=== PATIENT | male | born 1975 | race Hispanic/Latino ===

== ENCOUNTER 2018-12-31 05:22 | Emergency (ER) | payer SELFPAY ==
[2018-12-31] MEDS ORDERED: Sodium Chloride 0.9% 1,000 ML IV ONE (06:03)
--- NOTE | 2018-12-31 06:20 | C.PDOC ---
History Of Present Illness 43 year old male presents to ED with complaint of left flank pain for the past 2 days. Patient was diagnosed on 12/29 with left- sided kidney stones and this morning woke up with vomiting, recurrent pain, and hematuria. Patient denies fever, diarrhea, nausea, and chills. Time Seen by Provider: 12/31/18 06:02 Chief Complaint (Nursing): Back Pain History Per: Patient History/Exam Limitations: no limitations Onset/Duration Of Symptoms: Days (2) Current Symptoms Are (Timing): Still Present Quality Of Discomfort: "Pain" Previous Symptoms: None Associated Symptoms: denies: Incontinence, New Weakness, New Numbness Past Medical History Reviewed: Historical Data, Nursing Documentation, Vital Signs Vital Signs: Last Vital Signs Temp 98.3 F 12/31/18 05:30 Pulse 77 12/31/18 05:30 Resp 16 12/31/18 05:30 BP 139/92 H 12/31/18 05:30 Pulse Ox 100 12/31/18 05:30 Primary Care Provider: Non [facility] Provider, - Medical History PMH: Pulmonary Embolism (bilateral) Surgical History: No Surg Hx Family History: States: Unknown Family Hx - Social History Hx Alcohol Use: Yes Hx Substance Use: No Review Of Systems Constitutional: Negative for: Fever, Chills, Weakness Gastrointestinal: Positive for: Vomiting. Negative for: Nausea, Abdominal Pain, Diarrhea Genitourinary: Positive for: Hematuria. Negative for: Dysuria, Frequency Musculoskeletal: Positive for: Back Pain (left-sided flank pain) Neurological: Negative for: Weakness, Numbness Physical Exam - Physical Exam Appears: Well, Non-toxic, No Acute Distress Skin: Normal Color, Warm, Dry Head: Atraumatic, Normacephalic Oral Mucosa: Moist Neck: Normal ROM, Supple Chest: Symmetrical, No Deformity Cardiovascular: Rhythm Regular, No Murmur Respiratory: No Accessory Muscle Use, No Rales, No Rhonchi, No Wheezing Gastrointestinal/Abdominal: Soft, No Tenderness, Other (obese) Back: CVA Tenderness (left-sided) Extremity: Capillary Refill (<2 seconds) Extremity: Bilateral: Atraumatic, Normal Color And Temperature, Normal ROM Pulses: Left Radial: Normal, Right Radial: Normal Neurological/Psych: Oriented x3, Normal Speech, Normal Cognition Gait: Steady ED Course And Treatment O2 Sat by Pulse Oximetry: 100 (in RA) Pulse Ox Interpretation: Normal Progress Note: CMP, CBC, and UA ordered for patient. IV fluids, pain meds and zofran ordered. Disposition - Disposition Disposition Time: 06:56 Condition: STABLE Forms: [facility] (Burmese) - Clinical Impression Clinical Impression: Left flank pain, Hematuria - PA / [employer] / Resident Statement MD/DO has reviewed & agrees with the documentation as recorded. (Niru Torres) - Scribe Statement The provider has reviewed the documentation as recorded by the Scribe (Niru Torres) All medical record entries made by the Scribe were at my direction and personally dictated by me. I have reviewed the chart and agree that the record accurately reflects my personal performance of the history, physical exam, medical decision making, and the department course for this patient. I have also personally directed, reviewed, and agree with the discharge instructions and disposition. Physician Patient Turnover Patient Signed Over To: Ileana Joyce Handoff Comments: Pending labs, Non contrast abd/pelvis CT and reassessment
--- NOTE | 2018-12-31 06:21 | C.PDOC ---
Time Seen by Provider: 12/31/18 06:02 Chief Complaint (Nursing): Back Pain Past Medical History Vital Signs: Last Vital Signs Temp 98.3 F 12/31/18 05:30 Pulse 77 12/31/18 05:30 Resp 16 12/31/18 05:30 BP 139/92 H 12/31/18 05:30 Pulse Ox 100 12/31/18 05:30 Primary Care Provider: Non [facility] Provider, - Medical History PMH: Pulmonary Embolism (bilateral) - Social History Hx Alcohol Use: Yes Hx Substance Use: No ED Course And Treatment O2 Sat by Pulse Oximetry: 100 Disposition - Disposition
[2018-12-31] MEDS ORDERED: Morphine 4 MG/ML VIAL ONE ×2 (06:44→14:13)
[2018-12-31 07:12] LABS: URINE BILIRUBIN NEGATIVE (NEGATIVE); URINE CLARITY Turbid (Clear); URINE GLUCOSE (UA) NORMAL (Normal); URINE LEUKOCYTE ESTERASE NEG Leu/uL (Negative); URINE PROTEIN 2+ mg/dL (NEGATIVE); URINE UROBILINOGEN NORMAL mg/dL (0.2-1.0)
[2018-12-31 07:16] LABS: URINE BLOOD 3+ (NEGATIVE); URINE COLOR RED (YELLOW)
[2018-12-31 07:17] LABS: BLOOD UREA NITROGEN 11 mg/dL (9-20); CALCIUM 9.3 mg/dl (8.6-10.4); GFR NON-AFRICAN AMERICAN > 60
[2018-12-31 07:18] LABS: ALB/GLOB RATIO 1.2 (1.0-2.1); ALBUMIN 4.4 g/dL (3.5-5.0); ALT/SGPT 39 U/L (21-72); AST/SGOT 60 U/L (17-59)
[2018-12-31] MEDS ORDERED: Sodium Chloride 0.9% 1,000 ML IV STA (07:29)
[2018-12-31] MEDS ORDERED: Lidocaine 200 MG in Sodium Chloride 0.9% 100 ML IV STA (07:29)
--- NOTE | 2018-12-31 12:37 | CT ---
Date of service: 12/31/2018 PROCEDURE: CT Abdomen and Pelvis without intravenous contrast HISTORY: Left flank pain COMPARISON: None. TECHNIQUE: Axial and reformatted coronal and sagittal CT images of the abdomen and pelvis were obtained without IV or oral contrast administration. Contrast dose: 0 Radiation dose: Total exam DLP = 1234.95 mGy-cm. This CT exam was performed using one or more of the following dose reduction techniques: Automated exposure control, adjustment of the mA and/or kV according to patient size, and/or use of iterative reconstruction technique. FINDINGS: LOWER THORAX: Unremarkable. LIVER: Unremarkable. No gross lesion or ductal dilatation. GALLBLADDER AND BILE DUCTS: Unremarkable. PANCREAS: Unremarkable. No gross lesion or ductal dilatation. SPLEEN: Unremarkable. ADRENALS: Unremarkable. No mass. KIDNEYS AND URETERS: There is mild left hydronephrosis and hydroureter up to 3 millimeter calculus at the distal left ureter adjacent to the UV junction. There Is 2 millimeter nonobstructing calculus at the lower pole of the right kidney. Punctate calcification are noted in both kidneys. No evidence of right hydronephrosis. VASCULATURE: Unremarkable. No aortic aneurysm. No aortic atherosclerotic calcification or mural plaque present. BOWEL: Unremarkable. No obstruction. No gross mural thickening. Few scattered colonic diverticulosis are noted without evidence of diverticulitis. APPENDIX: No evidence of appendicitis. PERITONEUM: Unremarkable. No free fluid. No free air. LYMPH NODES: Unremarkable. No enlarged lymph nodes. BLADDER: Unremarkable. REPRODUCTIVE: Unremarkable. BONES: No acute fracture. OTHER FINDINGS: None. IMPRESSION: Mild left hydronephrosis and hydroureter up to 3 millimeter calculus at the distal left ureter adjacent to the UV junction. 2 millimeter nonobstructing calculus at the lower pole of the right kidney. Punctate calcification in both kidneys.
[2018-12-31 12:42] LABS: BASO % 1.2 % (0.0-2.0); EOS # 0.3 K/uL (0.0-0.7); EOS % 7.7 % (0.0-4.0); HEMOGLOBIN 11.4 g/dL (12.0-18.0); LYMPH # 0.6 K/uL (1.0-4.3); MEAN CELL VOLUME 83.1 fL (80.0-94.0); MEAN CORPUSCULAR HEMOGLOBIN 28.2 pg (27.0-31.0); MEAN CORPUSCULAR HGB CONC 33.9 g/dL (33.0-37.0); MONO # 0.5 K/uL (0.0-0.8); MONO % 11.3 % (0.0-10.0); NEUT # 2.8 K/uL (1.8-7.0); NEUT % 65.8 % (50.0-75.0); NRBC % 0.1 % (0.0-2.0); RBC 4.05 Mil/uL (4.40-5.90); RED CELL DISTRIBUTION WIDTH 20.3 % (11.5-14.5); WHITE BLOOD COUNT 4.2 K/uL (4.8-10.8)
[2018-12-31 12:54] LABS: INR 1.1; PARTIAL THROMBOPLASTIN TIME 30.2 SECONDS (21-34); PROTHROMBIN TIME 12.4 SECONDS (9.7-12.2)
[2018-12-31 13:23] VITALS: O2SAT 100
[2018-12-31 15:01] VITALS: BP 128/84; PULSE 66; RESP 19; TEMP 97.7
== END 2018-12-31 15:00 | disposition home or self-care (01) ==
LOC: C.ER 05:22 → EDBD 05:22 → C.ER 15:00
DX: N23 Unspecified renal colic (principal); R31.9 Hematuria, unspecified; Z86.711 Personal history of pulmonary embolism
CPT/HCPCS: 36415; 74176; 80053; 81001; 85025; 85610; 85730; 96361; 96374; 96376; 99285; J2001; J2270; J7030